=== PATIENT | female | born 1960 | race Caucasian/White ===

== ENCOUNTER 2022-11-02 14:41 | Outpatient (RCR) | payer OTHER, SELFPAY | END 2023-05-01 23:59 | disposition home or self-care (01) | LOC: CCIC 14:41 | PROVIDERS: PCP Student in an Organized Health Care Education/Training Program; Visit Provider Physician Assistant | DX: C50.911 Malignant neoplasm of unspecified site of right female breast (principal); C77.3 Secondary and unspecified malignant neoplasm of axilla and upper limb lymph nodes; Z17.0 Estrogen receptor positive status [ER+]; Z79.811 Long term (current) use of aromatase inhibitors; M85.80 Other specified disorders of bone density and structure, unspecified site | CPT/HCPCS: 99212; 99214 ==

== ENCOUNTER 2023-12-18 09:28 | Outpatient (CLI) | payer OTHER, SELFPAY ==
--- NOTE | 2023-12-18 09:45 | MM_ITS ---
Patient: GURDEEP OLEA Facility:?[facility] Patient ID:?[id number] Site Patient ID:?[id number] Site :?1960 Study:?XRay-Breast Left 3D W/CAD-12/18/2023 10:24:19 AM Ordering Physician:Jefry Final Report: DIGITAL DIAGNOSTIC LEFT MAMMOGRAM USING TOMOSYNTHESIS AND COMPUTER-AIDED DETECTION CLINICAL HISTORY: LEFT breast lump. COMPARISON: 05/05/2014. TECHNIQUE: Digital LEFT mammogram in two projections with computer-aided detection. Tomosynthesis was used in this interpretation. Real-time ultrasound imaging of LEFT breast with imaging documentation. BREAST COMPOSITION: There are areas of scattered fibroglandular densities. FINDINGS: 3D CC/MLO LEFT breast mammogram images submitted. No suspicious masses or architectural distortion. No suspicious calcifications or adenopathy. Targeted LEFT breast ultrasound performed at 3 o`clock 3 cm from the nipple corresponding to the area of concern. Normal dense fibroglandular tissue is present. No suspicious mass or fluid collection. IMPRESSION: No evidence of malignancy. RECOMMENDATIONS: Routine screening mammography. Results and recommendations discussed with the patient. BI-RADS Category 2: Benign A lay language report of this examination will be provided to the patient. Dictated by Hoang Arango MD @ 12/18/2023 12:22:02 PM paulinaj/Dictated by: Hoang Arango MD @ 12/18/2023 12:22:00 PM Signed by:?Hoang Arango MD @12/18/2023 1:36:23 PM (Electronic Signature)
--- NOTE | 2023-12-18 10:15 | US_ITS ---
Patient: GURDEEP OLEA Facility:?[facility] Patient ID:?[id number] Site Patient ID:?[id number] Site :?1960 Study:?US-Breast Left DSM to read-12/18/2023 10:31:52 AM Ordering Physician:?Yamini Evans Final Report: PLEASE SEE DIGITAL DIAGNOSTIC LEFT MAMMOGRAM PERFORMED SAME DAY CRL:jelly reaves/Dictated by: Hoang Arango MD @ 12/18/2023 12:22:00 PM Signed by:?Hoang Arango MD @12/18/2023 2:58:26 PM (Electronic Signature)
== END 2023-12-18 09:29 | disposition home or self-care (01) ==
LOC: MAMMO 09:29
PROVIDERS: PCP Student in an Organized Health Care Education/Training Program; Visit Provider Physician Assistant
DX: N63.20 Unspecified lump in the left breast, unspecified quadrant (principal)
CPT/HCPCS: 76642; 77065; G0279

== ENCOUNTER 2024-01-21 15:30 | Outpatient (RCR) | payer OTHER, SELFPAY | END 2024-05-17 23:59 | disposition home or self-care (01) | LOC: CCIC 15:30 | PROVIDERS: PCP Student in an Organized Health Care Education/Training Program; Visit Provider Physician Assistant | DX: C50.911 Malignant neoplasm of unspecified site of right female breast (principal); Z17.0 Estrogen receptor positive status [ER+]; C77.3 Secondary and unspecified malignant neoplasm of axilla and upper limb lymph nodes; Z79.811 Long term (current) use of aromatase inhibitors; M85.80 Other specified disorders of bone density and structure, unspecified site | CPT/HCPCS: 99213; 99214; G0463 ==

== ENCOUNTER 2025-01-15 14:32 | Outpatient (RCR) | payer OTHER, SELFPAY | END 2025-07-14 23:59 | disposition home or self-care (01) | LOC: CCIC 14:32 | PROVIDERS: PCP Student in an Organized Health Care Education/Training Program; Visit Provider Physician Assistant | DX: C50.911 Malignant neoplasm of unspecified site of right female breast (principal); Z17.0 Estrogen receptor positive status [ER+]; C77.3 Secondary and unspecified malignant neoplasm of axilla and upper limb lymph nodes; Z79.811 Long term (current) use of aromatase inhibitors | CPT/HCPCS: 99213; 99214; G0463 ==